=== PATIENT | male | born 1955 | race Caucasian/White ===

== ENCOUNTER 2018-03-09 15:01 | Emergency (ER) | payer OTHER ==
[~2018-03-09] VITALS: Ht 180.3 cm; Wt 83.0 kg
[2018-03-09 15:04] VITALS: BP 157/87
--- NOTE | 2018-03-09 15:05 | NUR ---
PT ENOCH BLS AND TAKEN TO TRIAGE ROOM
--- NOTE | 2018-03-09 15:11 | NUR ---
patient to lobby with steady gait awaiting available room. gcs=[id number].
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
[2018-03-09] MEDS ORDERED: BACITRACIN OINT 500 UNITS/GM PKT TP ONE (15:50)
[2018-03-09] MEDS ORDERED: LIDOCAINE 1% 500 MG/50 ML VIAL INJ SCH (15:50)
[2018-03-09] MEDS ORDERED: ceFAZolin 1,000 MG VIAL IM ONE (15:50)
[2018-03-09] MEDS ORDERED: LIDOCAINE MPF 1% - **ER/OR** 5 ML ONE (15:57)
--- NOTE | 2018-03-09 16:25 | NUR ---
MARYLIN DUNN SUTURED LAC WOUND TO R EAR .PT TOLERATED PROCEDURE WELL.
[2018-03-09 17:24] VITALS: BP 138/78
== END 2018-03-09 17:25 | disposition home or self-care (01) ==
LOC: MED 15:01
DX: S01.311A Laceration without foreign body of right ear, initial encounter (principal); W22.8XXA Striking against or struck by other objects, initial encounter; Y93.89 Activity, other specified; Y99.8 Other external cause status; Y92.89 Other specified places as the place of occurrence of the external cause
CPT/HCPCS: 12011; 90471; 90715; 96372; 99284; J0690; J2001